=== PATIENT | female | born 1990 | race Caucasian/White ===

== ENCOUNTER 2017-11-19 13:09 | Inpatient (IN) | payer BC ==
[2017-11-19] MEDS ORDERED: Terbutaline 1 MG/ML SDV SUBCUT PRN (13:48)
[2017-11-19] MEDS ORDERED: Misoprostol 25 MCG (1/4 of 100 MCG) Tab VAG PRN (13:48)
[2017-11-19] MEDS ORDERED: Misoprostol 25 MCG (1/4 of 100 MCG) Tab PO ONE (13:50)
[2017-11-19] MEDS ORDERED: Misoprostol 25 MCG (1/4 of 100 MCG) Tab VAG SCH (14:00)
[2017-11-19] MEDS ORDERED: Oxytocin/0.9 % Sodium Chloride 30 UNIT/500 ML BAG IV SCH ×2 (14:00→15:15)
[2017-11-19] MEDS: Lactated Ringers 1,000 ML IV SCH ×2 (14:05→19:11)
[2017-11-19] MEDS ORDERED: Carboprost Tromethamine 250 MCG/1 ML Amp IM PRN (15:07)
[2017-11-19] MEDS ORDERED: Lidocaine 1% 50 ML MDV INJECT PRN (15:07)
[2017-11-19] MEDS ORDERED: Methylergonovine 0.2 MG/1 ML Amp IM PRN (15:07)
[2017-11-19] MEDS ORDERED: Butorphanol 1 MG/ML SDV IVPUSH PRN (15:07)
[2017-11-19] MEDS ORDERED: Water For Irrigation,Sterile 1,000 ML Container IRR PRN (15:07)
[2017-11-19] MEDS ORDERED: Nalbuphine 10 MG/1 ML Vial IVPUSH PRN (15:07)
[2017-11-19] MEDS ORDERED: Misoprostol 200 MCG Tab PO PRN (15:07)
[2017-11-19] MEDS ORDERED: Sodium Chloride 0.9% 2.5 ML Syringe FLUSH PRN (15:07)
[2017-11-19] MEDS ORDERED: Tranexamic Acid 1,000 MG in Sodium Chloride 0.9% 100 ML IV PRN (15:07)
[2017-11-19] MEDS ORDERED: Sodium Chloride 0.9% 10 ML Syringe FLUSH PRN (15:07)
--- NOTE | 2017-11-19 21:08 | PCM.PREANE ---
Preanesthetic Assessment - Anesthesia/Transfusion/Family Hx Anesthesia History: Prior Anesthesia Without Reaction Family History of Anesthesia Reaction: No Transfusion History: No Prior Transfusion(s) - Review of Systems General: No Symptoms Pulmonary: No Symptoms Cardiovascular: No Symptoms Gastrointestinal: No Symptoms Neurological: No Symptoms Other: Reports: None - Physical Assessment Height: 5 ft 4 in Weight: 100.698 kg ASA Class: 2 Mental Status: Alert & Oriented x3 Airway Class: Mallampati = 2 Dentition: Reports: Normal Dentition Thyro-Mental Finger Breadths: 3 Mouth Opening Finger Breadths: 3 ROM/Head Extension: Full Lungs: Clear to Auscultation, Normal Respiratory Effort Cardiovascular: Regular Rate, Regular Rhythm - Lab Values: Laboratory Last Values WBC 10.80 K/uL (4.0-11.0) 11/19/17 14:00 RBC 4.44 M/uL (4.30-5.90) 11/19/17 14:00 Hgb 12.8 g/dL (12.0-16.0) 11/19/17 14:00 Hct 36.4 % (36.0-46.0) 11/19/17 14:00 MCV 82.0 fL (80.0-98.0) 11/19/17 14:00 MCH 28.8 pg (27.0-32.0) 11/19/17 14:00 MCHC 35.2 g/dL (31.0-37.0) 11/19/17 14:00 RDW Std Deviation 40.4 fl (28.0-62.0) 11/19/17 14:00 RDW Coeff of Meena 14 % (11.0-15.0) 11/19/17 14:00 Plt Count 219 K/uL (150-400) 11/19/17 14:00 MPV 10.10 fL (7.40-12.00) 11/19/17 14:00 Nucleated RBC % 0.0 /100WBC 11/19/17 14:00 Nucleated RBCs # 0 K/uL 11/19/17 14:00 Blood Type A POSITIVE 11/19/17 14:00 Antibody Screen NEGATIVE 11/19/17 14:00 - Allergies Allergies/Adverse Reactions: Allergies Allergy/AdvReac Type Severity Reaction Status Date / Time No Known Allergies Allergy Verified 11/19/17 13:47 - Acknowledgements Anesthesia Type Planned: Epidural Pt an Appropriate Candidate for the Planned Anesthesia: Yes Alternatives and Risks of Anesthesia Discussed w Pt/Guardian: Yes Pt/Guardian Understands and Agrees with Anesthesia Plan: Yes PreAnesthesia Questionnaire - Past Health History Medical/Surgical History: Denies Medical/Surgical History HEENT History: Reports: None Cardiovascular History: Reports: None Respiratory History: Reports: None Gastrointestinal History: Reports: GERD Genitourinary History: Reports: Other (See Below) Other Genitourinary History: PCOS [employer] History: Reports: Polycystic Ovaries, : 3 Para: 2 LMP (Approximate): Musculoskeletal History: Reports: None Neurological History: Reports: Migraines Psychiatric History: Reports: Anxiety, Depression Endocrine/Metabolic History: Reports: Obesity/BMI 30+ Hematologic History: Reports: None Immunologic History: Reports: None Oncologic (Cancer) History: Reports: None Dermatologic History: Reports: None - Infectious Disease History Infectious Disease History: Reports: None - Past Surgical History HEENT Surgical History: Reports: Other (See Below) Other HEENT Surgeries/Procedures: wisdom teeth - SUBSTANCE USE Smoking Status *Q: Never Smoker Second Hand Smoke Exposure: No Recreational Drug Use History: No - HOME MEDS Home Medications: Home Meds Vit W-Ca,Fe,FA(<1 mg) [ Vitamins] 1 tab PO DAILY 11/19/17 [ History] Sertraline [Zoloft] 1 tab PO DAILY 11/19/17 [History] - CURRENT (IN HOUSE) MEDS Current Meds: Current Medications Butorphanol Tartrate (Stadol) 1 mg IVPUSH Q1H PRN PRN Reason: Pain Carboprost Tromethamine (Hemabate Ds) 250 mcg IM ASDIRECTED PRN PRN Reason: Post Hemorrhage Oxytocin/Sodium Chloride (Oxytocin 30 Unit/500 Ml-Ns) 30 unit in 500 mls @ 2 mls/hr IV TITRATE LARRY; Protocol Last Titration: 11/19/17 20:40 Dose: 0 munits/min, 0 mls/hr Lactated Ringer's (Ringers, Lactated) 1,000 mls @ 150 mls/hr IV ASDIRECTED LARRY Last Admin: 11/19/17 19:11 Dose: 150 mls/hr Oxytocin/Sodium Chloride (Oxytocin 30 Unit/500 Ml-Ns) 30 unit in 500 mls @ 999 mls/hr IV TITRATE [facility] Tranexamic Acid 1,000 mg/ (Sodium Chloride) 110 mls @ 660 mls/hr IV ONETIME PRN PRN Reason: Bleeding Lidocaine HCl (Xylocaine 1%) 50 ml INJECT .ONCE PRN PRN Reason: Laceration repair Methylergonovine Maleate (Methergine) 0.2 mg IM ASDIRECTED PRN PRN Reason: Post Hemorrhage Misoprostol (Cytotec) 25 mcg VAG .ONCE LARRY Misoprostol (Cytotec) 25 mcg VAG Q4H PRN PRN Reason: Cervical Ripening Last Admin: 11/19/17 14:31 Dose: 25 mcg Misoprostol (Cytotec) 200 mcg PO .ONCE PRN PRN Reason: Post Hemorrhage Nalbuphine HCl (Nubain) 10 mg IVPUSH Q1H PRN PRN Reason: Pain (severe 7-10) Sodium Chloride (Saline Flush) 10 ml FLUSH ASDIRECTED PRN PRN Reason: Keep Vein Open Sodium Chloride (Saline Flush) 2.5 ml FLUSH ASDIRECTED PRN PRN Reason: Keep Vein Open Sterile Water (Sterile Water For Irrigation) 1,000 ml IRR ASDIRECTED PRN PRN Reason: delivery Terbutaline Sulfate (Brethine) 0.25 mg SUBCUT ASDIRECTED PRN PRN Reason: Tacysystole Discontinued Medications Misoprostol (Cytotec) 25 mcg PO ONETIME ONE Stop: 11/19/17 13:51 Last Admin: 11/19/17 14:27 Dose: 25 mcg
[2017-11-19] MEDS ORDERED: Witch Hazel Medicated Pads 40/Jar TOP PRN (23:45)
[2017-11-19] MEDS ORDERED: Bisacodyl 10 MG Supp RECTAL PRN (23:45)
[2017-11-19] MEDS ORDERED: Acetaminophen 500 MG Tab PO PRN ×2 (23:45)
[2017-11-19] MEDS ORDERED: oxyCODONE 5 MG Tab PO PRN (23:45)
[2017-11-19] MEDS ORDERED: Docusate Sodium 100 MG Cap PO PRN (23:45)
[2017-11-19] MEDS ORDERED: Ibuprofen 400 MG Tab PO PRN (23:45)
[2017-11-19] MEDS ORDERED: Ibuprofen 800 MG Tab PO PRN (23:45)
[2017-11-19] MEDS ORDERED: Benzocaine/Menthol 20%-0.5% Spray 78 GM Cannister TOP PRN (23:45)
[2017-11-19] MEDS ORDERED: Lanolin 100% Cream 7 GM Tube TOP PRN (23:45)
--- NOTE | 2017-11-20 09:13 | OR ---
SURGEON: Sarah Osuna MD DATE OF PROCEDURE: 11/19/2017 PREOPERATIVE DIAGNOSES: 1. Term at 39 weeks and 5 days. 2. Induction of labor for history of precipitate labor, lives remote from hospital. POSTOPERATIVE DIAGNOSIS: 1. Term at 39 weeks and 5 days. 2. Induction of labor for history of precipitate labor, lives remote from hospital. 3. Delivered. PROCEDURE PERFORMED: 1. Induction of labor. 2. Spontaneous vaginal delivery. ANESTHESIA: Epidural. ESTIMATED BLOOD LOSS: 150 mL. COMPLICATIONS: None. DISPOSITION: Mother and baby stable in Labor and Delivery room, [facility]. FINDINGS: Male , weight 3350 g, score 9 and 9 at 1 and 5 minutes respectively. Grossly normal placenta, with three-vessel cord. Intact perineum. BRIEF HISTORY: Eva is a 27-year-old, G3, P 2-0-0-2, who was admitted at 39 weeks and 5 days for induction of labor secondary to history of precipitous labor with delivery and living remote from hospital. Her care was uncomplicated. GBS negative. Induction of labor was performed with Cytotec and Pitocin and she received epidural for pain management. She made good progress to full dilatation, spontaneous rupture of membrane occurred , when she was fully dilated, clear fluid noted and she commenced active pushing. Pushing quite well and bringing the head down to a +4 station. She was set up for delivery in modified dorsal lithotomy position. heart tracing was category 2. DESCRIPTION OF PROCEDURE: She had a spontaneous vaginal delivery of a live male in direct occipital anterior position, no nuchal cord, clear amniotic fluid at delivery. Anterior shoulders and the posterior shoulders and the rest of the baby were delivered without difficulty. Baby was vigorous and cried spontaneously at . Baby was delivered onto the maternal abdomen with the nursery nurse in attendance, stimulating and drying him. With delivery of the , oxytocin infusion was converted to titration for active management of third stage of labor. Delayed cord clamping were performed and the cord was subsequently cut by the father of the baby. Cord blood and gas samples were obtained. The placenta was delivered by controlled cord traction, appeared to be complete and intact. Examination of the perineum revealed no lacerations. Uterine massage was performed. The uterus was found to be well contracted below the umbilicus. The patient tolerated the procedure well. Sponge, instrument, and needle counts were correct at the end of the delivery. ADUMVIV / DEVINL /[id number] MTDD
--- NOTE | 2017-11-20 10:11 | PCM48HPAN ---
Post Anesthesia Note - EVALUATION WITHIN 48HRS OF ANESTHETIC Vital Signs in Normal Range: Yes Patient Participated in Evaluation: Yes Respiratory Function Stable: Yes Airway Patent: Yes Cardiovascular Function Stable: Yes Hydration Status Stable: Yes Pain Control Satisfactory: Yes Nausea and Vomiting Control Satisfactory: Yes Mental Status Recovered: Yes Resp Rate: 18
--- NOTE | 2017-11-20 13:32 | PCM.PNPP ---
- General Info Date of Service: 11/20/17 Functional Status: Reports: Pain Controlled, Tolerating Diet, Ambulating, Urinating - Review of Systems General: Denies: Fever, Weakness HEENT: Denies: Headaches Pulmonary: Denies: Shortness of Breath, Pleuritic Chest Pain Cardiovascular: Denies: Chest Pain, Palpitations, Dyspnea on Exertion Gastrointestinal: Denies: Abdominal Pain Genitourinary: Denies: Dysuria, Incontinence, Retention - General Info Date of Service: 11/20/17 - Patient Data Vital Signs - Most Recent: Last Vital Signs Temp 36.5 C 11/20/17 08:00 Pulse 66 11/20/17 08:00 Resp 18 11/20/17 10:11 BP 105/59 L 11/20/17 08:00 Pulse Ox 95 11/20/17 08:00 Weight - Most Recent: 222 lb I&O - Last 24 Hours: Intake & Output 11/19/17 11/20/17 11/20/17 22:59 06:59 14:59 Intake Total 1000 Balance 1000 Lab Results - Last 24 Hours: Laboratory Results - last 24 hr 11/19/17 11/19/17 11/19/17 Range/Units 14:00 14:00 23:30 WBC 10.80 (4.0-11.0) K/uL RBC 4.44 (4.30-5.90) M/uL Hgb 12.8 (12.0-16.0) g/dL Hct 36.4 (36.0-46.0) % MCV 82.0 (80.0-98.0) fL MCH 28.8 (27.0-32.0) pg MCHC 35.2 (31.0-37.0) g/dL RDW Std Deviation 40.4 (28.0-62.0) fl RDW Coeff of Meena 14 (11.0-15.0) % Plt Count 219 (150-400) K/uL MPV 10.10 (7.40-12.00) fL Nucleated RBC % 0.0 /100WBC Nucleated RBCs # 0 K/uL Cord ABG pH 7.192 (7.18-7.38) Cord ABG Base Excess -8 (-10--2) Cord VBG pH 7.262 (7.25-7.45) Cord VBG Base Excess -8 (-10--2) Blood Type A POSITIVE Antibody Screen NEGATIVE 11/20/17 Range/Units 05:42 WBC (4.0-11.0) K/uL RBC (4.30-5.90) M/uL Hgb 12.1 (12.0-16.0) g/dL Hct 35.5 L (36.0-46.0) % MCV (80.0-98.0) fL MCH (27.0-32.0) pg MCHC (31.0-37.0) g/dL RDW Std Deviation (28.0-62.0) fl RDW Coeff of Meena (11.0-15.0) % Plt Count (150-400) K/uL MPV (7.40-12.00) fL Nucleated RBC % /100WBC Nucleated RBCs # K/uL Cord ABG pH (7.18-7.38) Cord ABG Base Excess (-10--2) Cord VBG pH (7.25-7.45) Cord VBG Base Excess (-10--2) Blood Type Antibody Screen Med Orders - Current: Current Medications Acetaminophen (Tylenol Extra Strength) 500 mg PO Q4H PRN PRN Reason: Pain Acetaminophen (Tylenol Extra Strength) 1,000 mg PO Q4H PRN PRN Reason: Pain Benzocaine/Menthol (Dermoplast Pain Relief 20%-0.5% [place]) 78 gm TOP ASDIRECTED PRN PRN Reason: Perineal Comfort Measure Bisacodyl (Dulcolax) 10 mg RECTAL .ONCE PRN PRN Reason: Constipation Docusate Sodium (Colace) 100 mg PO BID PRN PRN Reason: Constipation Emollient Ointment (Lansinoh Hpa) 0 gm TOP ASDIRECTED PRN PRN Reason: Sore Nipples Ibuprofen (Motrin) 400 mg PO Q4H PRN PRN Reason: Pain Ibuprofen (Motrin) 800 mg PO Q6H PRN PRN Reason: Pain Last Admin: 11/20/17 09:20 Dose: 800 mg Oxycodone HCl (Oxycodone) 5 mg PO Q2H PRN PRN Reason: Pain Witch Lesia (Tucks) 1 pad TOP ASDIRECTED PRN PRN Reason: comfort care Discontinued Medications Butorphanol Tartrate (Stadol) 1 mg IVPUSH Q1H PRN PRN Reason: Pain Carboprost Tromethamine (Hemabate Ds) 250 mcg IM ASDIRECTED PRN PRN Reason: Post Hemorrhage Oxytocin/Sodium Chloride (Oxytocin 30 Unit/500 Ml-Ns) 30 unit in 500 mls @ 2 mls/hr IV TITRATE LARRY; Protocol Last Titration: 11/19/17 20:40 Dose: 0 munits/min, 0 mls/hr Lactated Ringer's (Ringers, Lactated) 1,000 mls @ 150 mls/hr IV ASDIRECTED LARRY Last Admin: 11/19/17 19:11 Dose: 150 mls/hr Oxytocin/Sodium Chloride (Oxytocin 30 Unit/500 Ml-Ns) 30 unit in 500 mls @ 999 mls/hr IV TITRATE LARRY Tranexamic Acid 1,000 mg/ (Sodium Chloride) 110 mls @ 660 mls/hr IV ONETIME PRN PRN Reason: Bleeding Fentanyl/Bupivacaine HCl (Ifaqarwv-[id number]-Jr 2 Mcg/Ml-0.125%) Confirm Administered Dose 100 mls @ as directed EP .STK-MED ONE Stop: 11/19/17 21:12 Lidocaine HCl (Xylocaine 1%) 50 ml INJECT .ONCE PRN PRN Reason: Laceration repair Methylergonovine Maleate (Methergine) 0.2 mg IM ASDIRECTED PRN PRN Reason: Post Hemorrhage Misoprostol (Cytotec) 25 mcg VAG .ONCE LARRY Misoprostol (Cytotec) 25 mcg VAG Q4H PRN PRN Reason: Cervical Ripening Last Admin: 11/19/17 14:31 Dose: 25 mcg Misoprostol (Cytotec) 25 mcg PO ONETIME ONE Stop: 11/19/17 13:51 Last Admin: 11/19/17 14:27 Dose: 25 mcg Misoprostol (Cytotec) 200 mcg PO .ONCE PRN PRN Reason: Post Hemorrhage Nalbuphine HCl (Nubain) 10 mg IVPUSH Q1H PRN PRN Reason: Pain (severe 7-10) Sodium Chloride (Saline Flush) 10 ml FLUSH ASDIRECTED PRN PRN Reason: Keep Vein Open Sodium Chloride (Saline Flush) 2.5 ml FLUSH ASDIRECTED PRN PRN Reason: Keep Vein Open Sterile Water (Sterile Water For Irrigation) 1,000 ml IRR ASDIRECTED PRN PRN Reason: delivery Terbutaline Sulfate (Brethine) 0.25 mg SUBCUT ASDIRECTED PRN PRN Reason: Tacysystole - Infant Interaction Disposition, : [place] in Room with Family Feeding: Breastfed ; Nursed Well Support Person: - Recovery Exam Fundal Tone: Firm Fundal Level: At Umbilicus Fundal Placement: Midline Lochia Amount: Scant Lochia Color: Rubra/Red Perineum Description: Intact, Minimal Bruising/Swelling Bladder Status: Voiding - Exam General: Alert, Oriented Lungs: Clear to Auscultation, Normal Respiratory Effort Cardiovascular: Regular Rate, Regular Rhythm GI/Abdominal Exam: Soft, Non-Tender Extremities: Non-Tender, Pedal Edema Psy/Mental Status: Alert - Problem List & Annotations (1) Vaginal delivery SNOMED Code(s): 619816968 Code(s): O80 - ENCOUNTER FOR FULL-TERM UNCOMPLICATED DELIVERY Status: Acute Current Visit: Yes - Problem List Review Problem List Initiated/Reviewed/Updated: Yes - My Orders Last 24 Hours: My Active Orders 11/19/17 13:48 Bedrest Bathroom Privileges [RC] ASDIRECTED Communication Order [RC] ASDIRECTED Communication Order [RC] ASDIRECTED Communication Order [RC] ASDIRECTED Notify Provider [RC] PRN Notify Provider [RC] PRN Notify Provider [RC] STAT Oxygen Therapy [RC] ASDIRECTED Vaginal Exam [RC] PRN Vital Signs [RC] PER UNIT ROUTINE 11/19/17 15:07 Heart Tones [RC] CONTINUOUS Non Stress Test [RC] PER UNIT ROUTINE May Shower [RC] ASDIRECTED Notify Provider [RC] PRN Up ad Beryl [RC] ASDIRECTED Vaginal Exam [RC] PRN Vital Signs [RC] PER UNIT ROUTINE 11/19/17 23:45 Patient Status [ADT] Routine May Shower [RC] ASDIRECTED Up ad Breyl [RC] ASDIRECTED Vital Signs [RC] PER UNIT ROUTINE Acetaminophen [Tylenol Extra Strength] 1,000 mg PO Q4H PRN Acetaminophen [Tylenol Extra Strength] 500 mg PO Q4H PRN Benzocaine/Menthol [Dermoplast Pain Relief 20%-0.5% [place]] 78 gm TOP ASDIRECTED PRN Bisacodyl [Dulcolax] 10 mg RECTAL .ONCE PRN Docusate Sodium [Colace] 100 mg PO BID PRN Ibuprofen [Motrin] 400 mg PO Q4H PRN Ibuprofen [Motrin] 800 mg PO Q6H PRN Lanolin [Lansinoh HPA] See Dose Instructions TOP ASDIRECTED PRN Witch Lesia [Tucks] 1 pad TOP ASDIRECTED PRN oxyCODONE 5 mg PO Q2H PRN Assess Lochia [WOMSER] Per Unit Routine Assess Uterine Involution [WOMSER] Per Unit Routine Breast Pump [WOMSER] Per Unit Routine Peripheral IV Discontinue [OM.PC] Routine Resuscitation Status Routine 11/19/17 23:46 Perineal Care [OM.PC] Per Unit Routine 11/20/17 Breakfast Regular Diet [DIET] - Assessment Assessment:: PPD#1 s/p , stable and afebrile Delivered close to midnight but would like to go home - Plan Plan:: Discharge instructions reviewed with patient Nothing in the vagina for 6 weeks Bleeding and infection precautions reviewed Continue PNV and OTC pain PRN Continue Zoloft, warning symptoms for worsening depression reviewed- should call physician Follow up in the clinic in 2-6 weeks
[2017-11-20 16:36] VITALS: BP 123/80
== END 2017-11-21 00:55 | disposition home or self-care (01) | DRG 560 ==
LOC: MW.OBCHECK 13:09 → MW.OB 13:15 → MW.OBCHECK 15:07 → MW.OB 15:17 → OBSVTOIN 23:30
PROVIDERS: ADMIT Obstetrics & Gynecology; ATTEND Obstetrics & Gynecology
PROC: 10E0XZZ Delivery of Products of Conception, External Approach (ICD-10-PCS; principal; 2017-11-19)
PROC: 3E0P7GC Introduction of Other Therapeutic Substance into Female Reproductive, Via Natural or Artificial Opening (ICD-10-PCS; 2017-11-19)
DX: O62.3 Precipitate labor (principal); Z3A.39 39 weeks gestation of pregnancy; Z37.0 Single live birth
CPT/HCPCS: 36415; 51702; 59025; 59409; 82803; 85014; 85018; 85027; 86850; 86900; 86901; A9270-GY; J2590; J7120